=== PATIENT | female | born 1965 | race Caucasian/White ===

== ENCOUNTER 2019-01-06 15:25 | Outpatient (CLI) | payer BC, OTHER ==
--- NOTE | 2019-01-06 15:48 | ULT ---
THYROID ULTRASOUND INDICATION: History of thyroid mass TECHNIQUE: Grayscale and color Doppler images were obtained of the thyroid gland. COMPARISON: None FINDINGS: Right thyroid lobe: The right thyroid lobe measures 4.6 x 2.2 x 1.9 cm. There is a mixed cystic and s olid, hyperechoic, well-circumscribed nodule within the mid right thyroid lobe measuring 2.4 x 1.7 x 1.8 cm. Thyroid isthmus: The thyroid isthmus measures 0.32 cm. Left thyroid lobe: The left thyroid lobe measures 4.7 x 1.6 x 1.4 cm. There is a mixed solid and cyst ic, hyperechoic, well-circumscribed nodule involving the inferior pole of the left thyroid lobe measuring 1.6 x 1.4 x 0.7 cm IMPRESSION: 1. Bilateral TIRADS 2 lesions of the right and left thyroid lobe.
== END 2019-01-06 15:26 | disposition home or self-care (01) ==
LOC: SCSULT 15:25
PROVIDERS: ATTEND Family Medicine
DX: E04.2 Nontoxic multinodular goiter (principal)
CPT/HCPCS: 76536

== ENCOUNTER 2019-02-15 15:46 | Outpatient (CLI) | payer BC, OTHER | END 2019-02-15 15:47 | disposition home or self-care (01) | LOC: DTY/OP 15:46 | PROVIDERS: ATTEND Surgery | DX: E66.01 Morbid (severe) obesity due to excess calories (principal) | CPT/HCPCS: 97802 ==

== ENCOUNTER 2019-09-24 07:26 | Outpatient (CLI) | payer BC, OTHER ==
--- NOTE | 2019-09-24 10:46 | RAD ---
EXAM: Two views chest PROVIDED CLINICAL HISTORY: Preoperative evaluation COMPARISON: 12/10/2016 FINDINGS: Cardiac silhouette and pulmonary vasculature are within normal limits. The lungs are clear. Degenera tive changes in the visualized upper lumbar spine. Chest is stable compared to prior exam. IMPRESSION: No acute cardiopulmonary process.
[2019-09-24 11:30] LABS: #Basophils 0.1 thou/uL (0.0-0.2); #Eosinphils 0.2 thou/uL (0.0-0.7); #Monocytes 0.6 thou/uL (0.11-0.59); #Neutrophils 5.1 thou/uL (1.40-6.50); %Basophils 1.1 % (0.0-1.0); %Eosinophils 2.4 % (0.0-10.0); %Lymphocytes 25.2 % (21.0-51.0); %Monocytes 7.6 % (0.0-10.0); %Neutrophils 63.7 % (42.0-75.0); Mean Corpuscular HGB CONC 33.7 g/dL (32.0-36.0); Mean Corpuscular Hemoglobin 29.7 pg (27.0-31.0); Mean Corpuscular Volume 88.1 fL (78.0-98.0); Mean Platelet Volume 8.2 fL (7.4-10.4); Platelet Count 259 thou/uL (130-400); RBC Distribution Width 12.5 % (11.5-14.5); Red Blood Cell (RBC) Count 5.38 mill/uL (4.20-5.40)
[2019-09-24 11:46] LABS: Hemoglobin A1c 10.9 % (4.0-6.0)
[2019-09-24 11:57] LABS: ALT (SGPT) 28 U/L (8-55); AST (SGOT) 19 U/L (5-34); Albumin 4.2 g/dL (3.5-5.0); Alkaline Phosphatase 83 U/L (40-110); Anion Gap 13 mmol/L (10-20); BUN (Urea Nitrogen) 14 mg/dL (9.8-20.1); Bilirubin, Total 0.4 mg/dL (0.2-1.2); Calc. Creatinine Clearance 0 mL/min (70-130); Calcium 9.6 mg/dL (7.8-10.44); Carbon Dioxide 24 mmol/L (22-29); Chloride 102 mmol/L (98-107); Estimated GFR-MDRD 78; Globulin 3.5 g/dL (2.4-3.5); Glucose 252 mg/dL (70-105); Potassium 3.8 mmol/L (3.5-5.1); Protein, Total 7.7 g/dL (6.0-8.3); Sodium 135 mmol/L (136-145)
[2019-09-25 16:48] LABS: SARS-CoV-2 MS2 Positive; SARS-CoV-2 N Gene Negative; SARS-CoV-2 S Gene Negative; SARS-CoV-2 orf1ab Negative
== END 2019-09-24 07:27 | disposition home or self-care (01) ==
LOC: LABBT 07:26
PROVIDERS: ATTEND Surgery
DX: Z01.818 Encounter for other preprocedural examination (principal); Z11.59 Encounter for screening for other viral diseases; E66.01 Morbid (severe) obesity due to excess calories
CPT/HCPCS: 71046; 80053; 83036; 85025; 87635; 93005; 93010; U0003

== ENCOUNTER 2019-09-24 09:30 | Inpatient (IN) | payer BC, OTHER ==
[2019-09-27] MEDS ORDERED: Famotidine/PF 20 mg/2ml Vial ONE (08:22)
[2019-09-27] MEDS ORDERED: Heparin 5,000 UNITS/ML VIAL ONE (08:22)
[2019-09-27] MEDS ORDERED: Midazolam HCl 2 mg/2 ml Vial ONE (08:22)
[2019-09-27] MEDS ORDERED: Bupivacaine 0.25% HCL 30 ML VIAL ONE (08:45)
[2019-09-27] MEDS ORDERED: Lidocaine 1% w/Epinephrine 1:100K 20 ML VIAL ONE (08:45)
[2019-09-27] MEDS ORDERED: Fentanyl 100 MCG/2 ML VIAL ONE ×3 (08:51→11:05)
[2019-09-27] MEDS ORDERED: Levofloxacin 500 mg/D5W 100 ml Premix Bag ONE (08:58)
[2019-09-27] MEDS ORDERED: Insulin Regular 300 UNITS/3 ML VIAL SC PRN (10:09)
[2019-09-27] MEDS ORDERED: Ondansetron PF 4 MG/2 ML Vial IVP PRN (10:09)
[2019-09-27] MEDS ORDERED: Promethazine HCl 25 MG/ML VIAL IM PRN ×3 (10:09→10:43)
[2019-09-27] MEDS ORDERED: Hydrocodone-Acetamin 15 ML UDCUP PO PRN (10:09)
[2019-09-27] MEDS ORDERED: diphenhydrAMINE 50 MG/ML VIAL IVP PRN ×2 (10:09→10:43)
[2019-09-27] MEDS ORDERED: Dextrose 5% in Water 1,000 ML IV PRN (10:09)
[2019-09-27] MEDS ORDERED: Dextrose 50% Abboject 50 ML SYRINGE SLOW IVP PRN (10:09)
[2019-09-27] MEDS ORDERED: hydrALAZINE 20 MG/ML VIAL SLOW IVP PRN (10:09)
[2019-09-27] MEDS ORDERED: Ondansetron HCl/PF 4 MG/2 ML Vial IVP PRN (10:20)
[2019-09-27] MEDS ORDERED: HYDROmorphone 2 MG/ML VIAL SLOW IVP PRN (10:20)
[2019-09-27] MEDS ORDERED: Meperidine HCl/PF 25 MG/ML VIAL SLOW IVP PRN (10:20)
[2019-09-27] MEDS ORDERED: PACU-Morphine 4MG/ML VIAL SLOW IVP PRN (10:20)
[2019-09-27] MEDS ORDERED: Morphine Sulfate 2 MG/ML SYRINGE SLOW IVP PRN (10:20)
[2019-09-27] MEDS ORDERED: Promethazine HCl 25 MG/ML VIAL SLOW IVP PRN (10:20)
[2019-09-27] MEDS ORDERED: diphenhydrAMINE 25 MG CAP PO PRN (10:43)
[2019-09-27] MEDS ORDERED: Naloxone HCl 0.4 mg/ml Vial IV PRN (10:43)
[2019-09-27] MEDS ORDERED: fentaNYL Citrate/PF 2,000 MCG in Sodium Chloride 0.9% 60 ML IV PRN (10:43)
[2019-09-27] MEDS ORDERED: Ketorolac Tromethamine 30 MG/ML VIAL IVP PRN (10:43)
[2019-09-27] MEDS ORDERED: Zolpidem Tartrate 5 MG TAB PO PRN (10:43)
[2019-09-27] MEDS ORDERED: diphenhydrAMINE 50 MG/ML VIAL IM PRN (10:43)
[2019-09-27] MEDS ORDERED: Communication Order-Pharmacy FS SCH (10:45)
[2019-09-27] MEDS ORDERED: Promethazine HCl 25 MG/ML VIAL ONE (11:07)
[2019-09-27] MEDS ORDERED: Ketorolac Tromethamine 30 MG/ML VIAL IVP SCH (12:00)
--- NOTE | 2019-09-27 12:19 | OP ---
DATE OF PROCEDURE: 09/27/2019 CHIEF COMPLAINT: Morbid obesity. HISTORY: The patient is a 54-year-old female, morbidly obese, who has attempted multiple weight loss programs without success. FINDINGS: A 38-Vietnamese bougie used. DESCRIPTION OF PROCEDURE: After informed consent was obtained, the patient was taken to the operating room, given general endotracheal anesthesia, placed in the supine position. Abdomen was prepped and draped in usual fashion. Local anesthesia was infiltrated subcutaneously and deep, and a 12 mm incision was performed approximately 8 inches below the xiphoid, slightly to the left. Veress needle inserted. Drop test performed. Pneumoperitoneum was created to a volume of 2 L of carbon dioxide. Utilizing a bladeless 12-mm trocar and 0-degree laparoscopic, direct visual entry into the abdominal cavity was performed. Pneumoperitoneum was created to a pressure of 15 mmHg, and the patient was placed in steep reverse Trendelenburg position. [place] liver retractor inserted. Left lobe of the liver retracted superior. The pylorus was identified and 12-mm port placed on the right beneath it and two 12s were placed left subcostal. The omentum was taken off the greater curvature 5 cm from the pylorus utilizing the LigaSure. Short gastrics were divided with LigaSure. Left crura defined with LigaSure. A 38-Vietnamese bougie inserted, directed into the antrum. Linear 60 mm green load stapler was used to divide the antrum to the bougie, gold load along the bougie, and a series of blues through the angle of His. Intraoperative endoscopy was performed. The video endoscope was inserted under direct vision, advanced into the sleeve. Staple line inspected. There was no bleeding. Staple line then tested by inflating the new stomach with pressurized air under water. There was no air leak. Stomach decompressed. Scope removed. The remnant stomach removed from the abdomen through left lateral port site. The fascia was closed with 0 Vicryl suture and GraNee needle. Trocars and retractors were removed. Skin closed with interrupted 4-0 Rapide. Dermabond applied. The patient tolerated the procedure well, transferred to Recovery in good condition. Sponge and needle count verified correct x2. Job ID: [id number]
[2019-09-27] MEDS ORDERED: PROPOFOL 200 MG/20 ML VIAL ONE (13:06)
[2019-09-27] MEDS ORDERED: Rocuronium Bromide 10 MG/ML (10ML VIAL) ONE (13:06)
[2019-09-27] MEDS ORDERED: diphenhydrAMINE 50 MG/ML VIAL ONE (13:06)
[2019-09-27] MEDS ORDERED: Lidocaine 1% PF 5 ML VIAL ONE (13:06)
[2019-09-27] MEDS ORDERED: Ketorolac Tromethamine 30 MG/ML VIAL ONE (13:06)
[2019-09-27] MEDS ORDERED: Ondansetron PF 4 MG/2 ML Vial ONE (13:06)
[2019-09-27 13:18] VITALS: BMI 33.7
[2019-09-27] MEDS: 1/2 NS w/KCL 20 mEq 1,000 ML IV SCH ×3 (14:02→23:15)
[2019-09-27] MEDS: Ondansetron PF 4 MG/2 ML Vial IVP PRN ×2 (15:26→20:58)
[2019-09-28 05:44] LABS: #Lymphocytes 1.6 thou/uL (1.20-3.40); #Monocytes 0.5 thou/uL (0.11-0.59); #Neutrophils 5.5 thou/uL (1.40-6.50); %Basophils 0.2 % (0.0-1.0); %Eosinophils 0.4 % (0.0-10.0); %Lymphocytes 20.8 % (21.0-51.0); %Monocytes 6.8 % (0.0-10.0); %Neutrophils 71.7 % (42.0-75.0); Hemoglobin 12.6 g/dL (12.0-16.0); Mean Corpuscular HGB CONC 34.7 g/dL (32.0-36.0); Mean Corpuscular Hemoglobin 30.6 pg (27.0-31.0); Mean Corpuscular Volume 88.2 fL (78.0-98.0); Mean Platelet Volume 7.7 fL (7.4-10.4); Platelet Count 224 thou/uL (130-400); RBC Distribution Width 12.5 % (11.5-14.5); Red Blood Cell (RBC) Count 4.12 mill/uL (4.20-5.40); White Blood Cell (WBC) Count 7.7 thou/uL (4.8-10.8)
[2019-09-28] MEDS: 1/2 NS w/KCL 20 mEq 1,000 ML IV SCH ×2 (05:44→17:14)
[2019-09-28 06:00] LABS: Anion Gap 9 mmol/L (10-20); BUN (Urea Nitrogen) 9 mg/dL (9.8-20.1); Calc. Creatinine Clearance 163 mL/min (70-130); Calcium 8.4 mg/dL (7.8-10.44); Carbon Dioxide 25 mmol/L (22-29); Chloride 103 mmol/L (98-107); Estimated GFR-MDRD Greater than 90; Glucose 170 mg/dL (70-105); Potassium 4.1 mmol/L (3.5-5.1); Sodium 133 mmol/L (136-145)
[2019-09-28] MEDS: Pantoprazole 40 MG VIAL IVP SCH (08:21)
[2019-09-28] MEDS: Ondansetron PF 4 MG/2 ML Vial IVP PRN ×2 (08:21→16:49)
[2019-09-28] MEDS ORDERED: Enoxaparin Sodium 40 MG/0.4 ML SYRINGE SC SCH (09:00)
[2019-09-28] MEDS ORDERED: Hydrocodone-Acetamin 15 ML UDCUP PO PRN (09:26)
[2019-09-28] MEDS ORDERED: GASTROGRAFIN 30 ML BOT ONE (09:31)
--- NOTE | 2019-09-28 10:14 | RAD ---
Esophagram HISTORY: Bariatric surgery. FINDINGS: Single column Gastrografin evaluation shows postoperative changes of the stomach consistent with recent gastric sleeve procedure. Contrast passes without difficulty. No evidence of obstruction or leak. Fluoroscopy time 2 seconds.
[2019-09-28] MEDS ORDERED: Acetaminophen/Codeine 120-12MG/5 ML UDCUP PO PRN (11:39)
[2019-09-28] MEDS ORDERED: Meperidine HCl/PF 25 MG/ML VIAL SLOW IVP PRN (11:40)
[2019-09-28] MEDS ORDERED: HYDROcodone/Acetaminophen 5/325 mg Tablet PO PRN ×2 (15:19→15:20)
[2019-09-28] MEDS ORDERED: Sodium Chloride 0.9% 1,000 ML IV SCH (16:15)
[2019-09-28 16:20] LABS: Hemoglobin 11.1 g/dL (12.0-16.0)
[2019-09-29] MEDS: 1/2 NS w/KCL 20 mEq 1,000 ML IV SCH ×2 (01:50→10:06)
[2019-09-29] MEDS: Pantoprazole 40 MG VIAL IVP SCH (09:58)
[2019-09-29 12:40] VITALS: BP 113/72; TEMP 98.3
--- NOTE | 2019-09-30 05:51 | DIS ---
DATE OF ADMISSION: 09/27/2019 DATE OF DISCHARGE: 09/29/2019 DISCHARGE DIAGNOSIS: Morbid obesity. PROCEDURES DURING ADMISSION: Laparoscopic sleeve gastrectomy, intraoperative esophagogastroscopy, postoperative Gastrografin swallow. HOSPITAL COURSE: The patient was admitted, taken to the operating room, where she underwent sleeve gastrectomy. Postoperatively, she had a lot of nausea related to the Gastrografin and the liquid pain medicine. She did not tolerate the hydrocodone elixir, so we gave her some Tylenol with Codeine, it was better, but she still did not like the sweet taste of it. She would prefer to go home with just crushing some hydrocodone tablets. She is tolerating liquids well. Her x-ray is fine. She is discharged home on [place] 5 one to two p.o. q.6 p.r.n., Zofran 10 mg p.o. q.4 p.r.n. She will follow up with me in 2 weeks. Job ID: [id number]
--- NOTE | 2019-09-30 11:09 | DIS ---
DATE OF ADMISSION: 09/27/2019 DATE OF DISCHARGE: 09/29/2019 ADDENDUM: We did a discharge summary yesterday, but after being discharged, she had a lot of pain and actually had an episode of hypertension and she responded to some fluids. She is doing fine now. She did pass some liquid stool. Vital signs are good. Pain controlled on p.o. medications. She is discharged home on hydrocodone, Zofran. She will follow up with me in 2 weeks. Job ID: [id number]
== END 2019-09-29 14:06 | disposition home or self-care (01) | DRG 621 ==
LOC: SURG A 09-27 06:59
PROVIDERS: ADMIT Surgery; ATTEND Surgery
PROC: 0DB64Z3 Excision of Stomach, Percutaneous Endoscopic Approach, Vertical (ICD-10-PCS; principal; 2019-09-27)
PROC: 0DJ08ZZ Inspection of Upper Intestinal Tract, Via Natural or Artificial Opening Endoscopic (ICD-10-PCS; 2019-09-27)
DX: E66.01 Morbid (severe) obesity due to excess calories (principal); M79.7 Fibromyalgia; G43.909 Migraine, unspecified, not intractable, without status migrainosus; E78.5 Hyperlipidemia, unspecified; E11.9 Type 2 diabetes mellitus without complications; Z68.34 Body mass index [BMI] 34.0-34.9, adult; Z88.0 Allergy status to penicillin; Z88.2 Allergy status to sulfonamides; Z91.040 Latex allergy status
CPT/HCPCS: 36415; 36416; 36600; 71046; 74240; 80048; 80053; 83036; 85025; 87635; 88307; 88312; 93005; 94760; C9113; J1200; J1644; J1650; J1885; J1956; J2001; J2250; J2405; J2550; J2704; J3010; J3480; Q9963; S0020; S0028; U0003

== ENCOUNTER 2019-10-12 10:56 | Day surgery (SDC) | payer BC ==
[~2019-10-12 10:56] MED LIST: Multivitamins, Adult 10 ML in Sodium Chloride 0.9% 1,000 ML IV SCH; Ondansetron PF 4 MG/2 ML Vial IVP PRN; Sodium Chloride 0.9% 1,000 ML IV SCH
[2019-10-12 13:19] VITALS: BP 118/67; TEMP 98
== END 2019-10-12 14:34 | disposition home or self-care (01) ==
LOC: ONC/OP 10:56
PROVIDERS: ATTEND Surgery
DX: E86.0 Dehydration (principal); Z88.0 Allergy status to penicillin; Z88.2 Allergy status to sulfonamides; Z91.040 Latex allergy status
CPT/HCPCS: 96361; 96365; 96366; J7050

== ENCOUNTER 2019-10-17 01:32 | Emergency (ER) | payer BC ==
[2019-10-17] MEDS ORDERED: Fentanyl 100 MCG/2 ML VIAL ONE (01:59)
[2019-10-17 02:29] LABS: #Basophils 0.1 thou/uL (0.0-0.2); #Eosinphils 0.1 thou/uL (0.0-0.7); #Lymphocytes 1.3 thou/uL (1.20-3.40); #Monocytes 0.5 thou/uL (0.11-0.59); #Neutrophils 5.7 thou/uL (1.40-6.50); %Basophils 1.1 % (0.0-1.0); %Eosinophils 1.1 % (0.0-10.0); %Lymphocytes 16.8 % (21.0-51.0); %Monocytes 6.3 % (0.0-10.0); %Neutrophils 74.7 % (42.0-75.0); Hemoglobin 11.4 g/dL (12.0-16.0); Mean Corpuscular HGB CONC 32.6 g/dL (32.0-36.0); Mean Corpuscular Hemoglobin 28.7 pg (27.0-31.0); Mean Platelet Volume 6.7 fL (7.4-10.4); Platelet Count 504 thou/uL (130-400); RBC Distribution Width 13.4 % (11.5-14.5); Red Blood Cell (RBC) Count 3.98 mill/uL (4.20-5.40); White Blood Cell (WBC) Count 7.7 thou/uL (4.8-10.8)
[2019-10-17 02:36] LABS: BHCG - Serum Negative (NEGATIVE); Pregs Control Background? CLEAR/WHITE (CLR/WHITE); Pregs Control Bar Appear? YES (CONTROL BAR)
[2019-10-17 02:48] LABS: ALT (SGPT) 18 U/L (8-55); AST (SGOT) 16 U/L (5-34); Albumin 3.5 g/dL (3.5-5.0); Alkaline Phosphatase 110 U/L (40-110); Anion Gap 19 mmol/L (10-20); BUN (Urea Nitrogen) 16 mg/dL (9.8-20.1); Bilirubin, Total 0.5 mg/dL (0.2-1.2); Calc. Creatinine Clearance 0 mL/min (70-130); Calcium 9.3 mg/dL (7.8-10.44); Carbon Dioxide 23 mmol/L (22-29); Chloride 99 mmol/L (98-107); Estimated GFR-MDRD 82; Globulin 4.2 g/dL (2.4-3.5); Glucose 194 mg/dL (70-105); Lipase 15 U/L (8-78); Potassium 3.2 mmol/L (3.5-5.1); Protein, Total 7.7 g/dL (6.0-8.3); Sodium 138 mmol/L (136-145)
[2019-10-17] MEDS ORDERED: Ketorolac Tromethamine 30 MG/ML VIAL ONE (03:13)
[2019-10-17] MEDS ORDERED: Levofloxacin 500 mg/D5W 100 ml Premix Bag ONE (03:13)
--- NOTE | 2019-10-17 09:48 | CT ---
PRELIMINARY REPORT/[facility]/AFTER HOURS PROCEDURE CT ABDOMEN AND PELVIS WITH INTRAVENOUS CONTRAST: CLINICAL HISTORY: Patient presents with left upper quadrant abdominal pain that began approximately 2 days ago and has steadily worsened in intensity. She says she feels like she has a "catch" in her side. She has had no nausea or vomiting. She denies fever. She says she was diagnosed with a urinary tract infection and has been on antibiotics for 6 days. She denies pain like this in the past. Patient underwent a gastri c sleeve procedure 3 weeks ago. TECHNIQUE: Axial computed tomography images of the abdomen and pelvis with intravenous contrast. CONTRAST: With Isovue-370 100 mL. COMPARISON: None provided. FINDINGS: Lung bases: No basilar airspace consolidation or pleural effusion. Liver: The liver is enlarged and is hypoenhancing. Gallbladder and bile ducts: Unremarkable. No calcified stone. No ductal dilation. Pancreas: Unremarkable. Spleen: Unremarkable. Adrenal glands: Unremarkable. Kidneys, ureters and bladder: Patchy hypoenhancement is noted in the right kidney. No hydronephrosis or nephrolithiasis. No ureteral or bladder calculi. Stomach and bowel: Sutures along the stomach. No obstruction. No wall thickening. No CT evidence of colitis or acute diverticulitis. Appendix: No CT evidence for appendicitis. Peritoneum: Small volume ascites in the left upper quadrant and in the pelvis. No free air. Lymph nodes: No lymphadenopathy. Reproductive: Thickened heterogeneous appearance of the cervix. The uterus appears normal. Vasculature: No aortic aneurysm. Atherosclerosis. Bones: No fracture or suspicious osseous abnormality. Multilevel degenerative disc disease. Abdominal wall and soft tissues: Unremarkable. IMPRESSION: 1. Small amount of free fluid in the left upper quadrant and in the pelvis. The fluid may be related to the recent surgery. Sutures along the stomach. 2. Patchy hypoenhancement in the right kidney consistent with the history of pyelonephritis. 3. Hepatomegaly with fat infiltration. 4. Enlarged thickened cervix. A cervical malignancy cannot be excluded. Correlation with physical ex amination is recommended. ELECTRONICALLY SIGNED BY: Kyle Connelly MD Oct 17, 2019 2:55:51 AM CDT This report is intended for review by the ordering physician only, in accordance of law. If you recei ve this report in error, please call [facility] at [phone]. FINAL REPORT CT ABDOMEN AND PELVIS: FINDINGS: There is a small left pleural effusion and left basilar atelectasis. There is fluid under the left hemidiaphragm with fluid extending to the postoperative stomach. A leak in regard to the gastric bypass procedure is a consideration. Subdiaphragmatic abscess is also a con cern. A tiny amount of free fluid in the deep pelvis. The cervix is enlarged and should be evaluated directly. I am in agreement with the preliminary report. CODE QA POS: AGBhavna
--- NOTE | 2019-10-17 09:52 | CT ---
PRELIMINARY REPORT/[facility]/AFTER HOURS PROCEDURE CTA CHEST WITH INTRAVENOUS CONTRAST: CLINICAL HISTORY: Patient presents with left upper quadrant abdominal pain that began approximately 2 days ago and has steadily worsened in intensity. She says she feels like she has a "catch" in her side. She has had no nausea or vomiting. She denies fever. She says she was diagnosed with a urinary tract infection and has been on antibiotics for 6 days. She denies pain like this in the past. Patient underwent a gastri c sleeve procedure 3 weeks ago. TECHNIQUE: Axial CTA images of the chest with intravenous contrast. Three-dimensional MIP/volume rendered reform ations were performed. CONTRAST: With Isovue-370 100 mL. COMPARISON: None provided. FINDINGS: Pulmonary arteries: There is no intraluminal filling defect suspicious for PE. Aorta: No thoracic aortic aneurysm or dissection. Lungs: Sublobar airspace disease in the left lower lobe. Right basilar subsegmental airspace diseas e. Pleural spaces: Small left side pleural effusion. No pneumothorax. Heart and mediastinum: Mild cardiomegaly. No significant pericardial effusion. The coronary arteries are calcified. Lymph nodes: No lymphadenopathy. Bones: No focal osseous abnormality or acute fracture. Multilevel degenerative disc disease. Chest wall and upper abdomen: Sutures along the stomach. Ascites in the left upper quadrant. The ch est wall is unremarkable. IMPRESSION: 1. Sublobar airspace disease in the left lower lobe which may represent atelectasis or pneumonia. Sm all left side pleural effusion. 2. Right basilar subsegmental atelectasis. 3. Mild cardiomegaly. Coronary artery disease. ELECTRONICALLY SIGNED BY: Kyle Connelly MD Oct 17, 2019 2:50:59 AM CDT This report is intended for review by the ordering physician only, in accordance of law. If you recei ve this report in error, please call [facility] at [phone]. FINAL REPORT CTA CHEST: FINDINGS: No evidence of pulmonary embolus. Effusion and left basilar infiltrate and atelectasis. I am in agreement with the preliminary report. CODE QA POS: GUI
[2019-10-17] MEDS ORDERED: Iopamidol-370 76% 500 ML 1 ML ONE (14:13)
--- NOTE | 2019-10-18 11:55 | EKG ---
Test Reason : Blood Pressure : / mmHG Vent. Rate : 088 BPM Atrial Rate : 088 BPM P-R Int : 152 ms QRS Dur : 080 ms QT Int : 366 ms P-R-T Axes : 030 -21 001 degrees QTc Int : 442 ms Normal sinus rhythm Possible Left atrial enlargement Left ventricular hypertrophy Abnormal ECG Confirmed by JOANNE SHERWOOD ([id number]), editor producer MIGUEL LIU ([id number]) on 10/18/2019 11:54:39 AM Referred By: Confirmed By:JOANNE SHERWOOD
== END 2019-10-17 04:58 | disposition home or self-care (01) ==
LOC: ERS 01:32
DX: J18.9 Pneumonia, unspecified organism (principal); R10.12 Left upper quadrant pain; R07.89 Other chest pain; Z79.1 Long term (current) use of non-steroidal anti-inflammatories (NSAID); Z79.899 Other long term (current) drug therapy
CPT/HCPCS: 71275; 74177; 80053; 83690; 84703; 85025; 93005; 96365; 96366; 96375; J1885; J1956; J3010; Q9967

== ENCOUNTER 2020-11-29 14:02 | Day surgery (SDC) | payer BC ==
[2020-11-29] MEDS: Sodium Chloride 0.9% 2,000 ML IV SCH ×2 (14:10→15:39)
[2020-11-29] MEDS ORDERED: Sodium Chloride 0.9% 20 ML ONE (14:11)
[2020-11-29] MEDS ORDERED: Ondansetron PF 4 MG/2 ML Vial IVP PRN (14:47)
[2020-11-29] MEDS ORDERED: Multivitamins, Adult 10 ML, Thiamine HCl 100 MG in Sodium Chloride 0.9% 500 ML IV SCH (15:00)
[2020-11-29 15:18] VITALS: BP 134/71; TEMP 97.9
== END 2020-11-29 17:30 | disposition home or self-care (01) ==
LOC: ONC/OP 14:02
PROVIDERS: ATTEND Surgery
DX: E86.0 Dehydration (principal); Z88.0 Allergy status to penicillin; Z88.2 Allergy status to sulfonamides; Z91.040 Latex allergy status
CPT/HCPCS: 96361; 96365; J3411; J7030